=== PATIENT | female | born 1975 | race Caucasian/White ===

== ENCOUNTER 2021-02-02 15:50 | Emergency (ER) | payer MEDICARE ==
[2021-02-02] MEDS ORDERED: Bupivacaine PF 0.5% 30 ML VIAL ONE (16:29)
[2021-02-02] MEDS ORDERED: Bacitracin 1 PK ONE (17:39)
== END 2021-02-02 17:10 | disposition home or self-care (01) ==
LOC: CSHERS 15:50
DX: S91.201A Unspecified open wound of right great toe with damage to nail, initial encounter (principal); I10 Essential (primary) hypertension; W22.8XXA Striking against or struck by other objects, initial encounter
CPT/HCPCS: 11732; S0020